=== PATIENT | female | born 1995 | race Two or more races ===

== ENCOUNTER 2024-03-16 11:55 | Outpatient (AMB) | payer OTHER, SELFPAY ==
--- NOTE | 2024-03-16 12:07 | MHC.OFFWIV ---
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 Started a week ago Patient Tobacco Use Status: Never used Tobacco Allergies No Known Allergies Allergy (Verified 03/16/24 12:12) Do you need a note to return to daycare/school/sports/work: No HPI [employer] REPRESENT[employer]IVE Cyst/OK per Provider HPI Details This note is constructed using voice recognition software. While every effort has been made to ensure accuracy, retaining room cutter errors may have been included. The patient is a 28 year old female who presents to the clinic today with cyst to right upper thigh posteriorly for the past one-week, growing and getting worse. She has been doing warm compresses without any relief, and even tried poking this at home by herself but was unable to get any drainage. She reports the area being red, warm, and moderately painful. She denies fever, chills. [facility] Social History Patient Tobacco Use Status: Never used Tobacco Review of Systems Const All systems reviewed & are unremarkable except as noted in HPI and below Physical Exam Vital Signs: Last Vital Signs Temp 98.7 F 03/16/24 12:08 Pulse 88 03/16/24 12:08 BP 98/60 03/16/24 12:08 Pulse Ox 99 03/16/24 12:08 Oxygen Delivery Method Room Air 03/16/24 12:08 BMI result Body Mass Index 24.2 Const General: cooperative, healthy appearing, comfortable, no acute distress and alert Orientation/consciousness: patient oriented x3 Limitations: no limitations Skin Other: 4 x 4 cm area of induration to right upper posterior thigh, with erythema and warmth. General skin exam: elasticity normal and turgor normal Neuro General: patient oriented x3 Psych Appearance: grossly normal Mental Status: mental status grossly normal Speech and movement: Normal speech and movement present Affect: normal affect Assessment & Plan Assessment & Plan (1) Cellulitis: Code(s): L03.90 - Cellulitis, unspecified Qualifiers: Site of cellulitis: extremity Site of cellulitis of extremity: lower extremity Laterality: right Qualified Code(s): L03.115 - Cellulitis of right lower limb Plan: No obvious cystic structure available for I&D. Antimicrobial therapy sent at this time to help improve infection. Advised patient to continue with warm compresses in the event that she may be able to allow this area to drain. Advised follow up with worsening symptoms, failure to resolve. Advised NSAIDs for pain. Plan See above for full details and plan. Medications: New cephalexin 500 mg PO BID 7 days 14 caps 0RF Coding Level of Care Code Est Pt Level 3 (02721) Diagnoses Cellulitis of right lower extremity L03.115 Site of cellulitis: extremity Site of cellulitis of extremity: lower extremity Laterality: right
[2024-03-16 12:08] VITALS: BP 98/60; PULSE 88; TEMP 37.1; O2SAT 99; BMI 24.2
== END 2024-03-16 13:10 | disposition home or self-care (01) ==
PROVIDERS: Visit Provider Registered Nurse
DX: L03.115 Cellulitis of right lower limb (principal)
CPT/HCPCS: 99213